=== PATIENT | female | born 1980 | race Caucasian/White ===

== ENCOUNTER 2023-05-07 21:07 | Emergency (ER) | payer MEDICAID, SELFPAY ==
--- NOTE | 2023-05-07 21:17 | XRR_ITS ---
PROCEDURE INFORMATION: Exam: XR Left Hip Exam date and time: 05/07/2023 9:23 PM Age: 43 years old Clinical indication: Injury or trauma; Fall; Blunt trauma (contusions or hematomas); Left; Hip TECHNIQUE: Imaging protocol: Radiologic exam of the left hip. Views: 2 or 3 views hip with pelvis when performed. COMPARISON: No relevant prior studies available. FINDINGS: Bones/joints: Osseous bumps are seen bilaterally in the femoral head neck junction suggesting possible cam type MARIA GUADALUPE. No acute fracture. Soft tissues: Unremarkable. XR/XR hip LT 2-3V wo/w pel* [id number] IMPRESSION: No acute findings.
[2023-05-07 21:28] VITALS: BP 134/73; PULSE 93; RESP 18; TEMP 36.8; O2SAT 97; BMI 29.0
--- NOTE | 2023-05-07 22:43 | W.ED.EXTPRO ---
HPI - Extremity Problem General: Chief complaint: Extremity Injury, Lower Stated complaint: left hip pain Time Seen by Provider: 05/07/23 22:39 History of Present Illness: 43-year-old female reports about 2 months ago she had fallen and landed on her left hip. Since then she has had persistent pain and discomfort to the left hip on the lateral aspect. Patient reports exacerbation of pain with movement of the hip. Patient appears nontoxic. Patient appears in mild pain at rest. Review of Systems Musc: Reports: joint pain (Left lateral hip) [facility] PFSH: Family History (Updated 08/31/21 @ 10:01 by Katrina Snow LPN) Mother Hypertension Diabetes type 2 Family/Other Hypertension Maternal aunt Heart disease Maternal aunt Ovarian cancer Maternal aunt Grandfather Heart disease Paternal Stroke Paternal Grandmother Breast cancer Maternal Physical Exam Const: COMMON NORMALS: alert HENMT: COMMON NORMALS: normocephalic HEAD & SCALP: normocephalic Neck/C-Spine: COMMON NORMALS: full ROM Resp: COMMON NORMALS: normal respiratory effort Back/Pelvis: COMMON NORMALS: thoracic and lumbar spine normal to inspection Extremity: LEFT LOWER EXTREMITY: Yes hip joint (Lateral tenderness, normal range of motion) Neuro: SENSORIUM/ORIENTATION: Yes alert Skin: COMMON NORMALS: turgor normal GENERAL SKIN EXAM: turgor normal Course Vital Signs: Vital signs: Vital Signs Temperature 98.3 F 05/07/23 21:28 Pulse Rate 93 05/07/23 21:28 Respiratory Rate 18 05/07/23 21:28 Blood Pressure 134/73 05/07/23 21:28 Pulse Oximetry 97 05/07/23 21:28 Oxygen Delivery Me thod Room Air 05/07/23 21:28 MDM - Extremity (Nontraumatic) Medical Decision Making 43-year-old female comes in today with complaints of left lateral hip pain. Patient injured the hip a little over 2 months ago and felt like she should be getting better she has recently acquired a new job and is going to be starting work in 1 week and was concerned due to her hip persisting with the pain and discomfort. On exam patient has some tenderness to the lateral aspect of the hip but no tenderness is noted in the inguinal area. No palpable pain is noted in the lumbar spine or in the sacroiliac joint. Differential diagnosis includes bursitis, tendinitis, arthritis, pelvic fracture. X-ray of the hip and pelvis was unremarkable. Believe the patient might have some tendinitis we will go ahead and start her on some steroids for the next 5 days to see if it resolved pain along with some diclofenac. Patient requested follow-up with orthopedics office for further evaluation and treatment due to the chronicity of the injury. Lab Data Radiology Impressions Hip/Pelvis X-Ray 05/07/23 21:17 IMPRESSION: No acute findings. Discharge Plan Discharge Patient Disposition: Home Clinical Impression: Hip pain, left, Tendinitis of left hip Condition: Stable Prescriptions: New prednisone 20 mg tablet 20 mg PO BID 5 Days Qty: 10 0RF diclofenac sodium 75 mg tablet,delayed release (DR/EC) 75 mg PO BID Qty: 20 0RF Discharge Orders: Discharge ED (Routine); Ordered 05/07/23 Ordered By: Flako Crocker Referrals: Nate Sierra MD [Primary Care Provider] - Discharge Diet: Usual diet Discharge Activity: Increase activity as tolerated Patient Instructions: Musculoskeletal Pain (ED) Activity Restrictions/Additional Instructions: Activity as tolerated. Use ice or heat to help with pain. Use acetaminophen and/or diclofenac for further pain relief. Take diclofenac routinely twice a day for the next 10 days. Use prednisone 20 mg twice a day for the next 5 days. Follow-up with primary care as needed. Case management will contact you regarding follow-up appointment with equipment sales specialist for continued pain. Coding Level of Care Code ED [employer] for Allison Shelley
[2023-05-07] MEDS: dexamethasone 10 mg/mL INJ IM (23:38)
[2023-05-07] MEDS: ketorolac 60 mg/2 mL INJ IM (23:41)
--- NOTE | 2023-05-09 09:27 | DCPLANNER ---
Addendum entered by Zoë Baumann 05/15/23 12:44: manager hardware received the following message from the ortho clinic regarding follow up appointment: Spoke to patient, she said that she talked to the ER provider and what was discussed was that she would take the medications and see how well they worked and follow up with her primary care. I let her know that's completely fine and she can call our office after she talks with her PCP if they decided she should follow up w/ orthopedics Original Note: manager hardware had message to schedule a follow up appointment for patient with ortho. manager hardware sent patients information to the front office staff at ortho. Patients information will be printed and reviewed. Clinic will call patient with appointment information.
== END 2023-05-07 23:45 | disposition home or self-care (01) ==
PROVIDERS: Emergency Provider Nurse Practitioner Family; Family Provider Family Medicine; PCP Family Medicine
DX: M76.9 Unspecified enthesopathy, lower limb, excluding foot (principal)
CPT/HCPCS: 73502; 96372; 99284; J1100; J1885

== ENCOUNTER 2024-08-12 05:00 | Emergency (ER) | payer MEDICAID, SELFPAY ==
[2024-08-12] VITALS (11 sets, daily range): BP systolic 115–134; BP diastolic 69–99; PULSE 60–89; RESP 14–18; TEMP 36.6; O2SAT 95–100; BMI 29.7
--- NOTE | 2024-08-12 05:05 | ECG_ITS ---
[facility]: 2024-[facility]12 Pat Name: Amanda Hidalgo Department: Room: Gender: Female Agricultural Produce Sorter: : 1980 Requested By: Josee Madrigal Order Number: [id number] Dejesus MD: Rhona Fan M.D. Measurements Intervals [place] Rate: 83 P: 76 [place]: 137 QRS: 89 QRSD: 80 T: 78 QT: 363 QTc: 427 Interpretive Statements SINUS RHYTHM No previous ECG available for comparison Electronically Signed On 08-12-2024 18:55:15 CEMENT AND CONCRETE PLANT WORKER by Rhona Fan M.D. [email or web address]
--- NOTE | 2024-08-12 05:05 | XRR_ITS ---
PROCEDURE INFORMATION: Exam: XR Chest Exam date and time: 08/12/2024 5:23 AM Age: 44 years old Clinical indication: Shortness of breath; Additional info: Chest pain TECHNIQUE: Imaging protocol: Radiologic exam of the chest. Views: 1 view. COMPARISON: No relevant prior studies available. FINDINGS: Lungs: Unremarkable. No consolidation. Pleural spaces: Unremarkable. No pleural effusion. No pneumothorax. Heart/Mediastinum: Unremarkable. No cardiomegaly. Bones/joints: Unremarkable. XR/XR chest 1V portable [id number] IMPRESSION: No acute findings.
--- NOTE | 2024-08-12 05:17 | W.ED.CHESTPA ---
Documented by User: Josee Elizalde MD 08/12/24 05:18 HPI - Chest Pain General: Chief Complaint: Chest Pain Stated Complaint: CP SOB High BP Time Seen by Provider: 08/12/24 05:05 History of Present Illness: 44-year-old female with no known medical history and takes no medications who presents the emergency room with chest discomfort. She said this started at the beginning of her shift tonight. About 11 hours ago. She had tried some antacid which did not help. She said she has been having some heartburn. She is also been having chest pain in the center of her chest that was hurting into her left shoulder as well. Her charge nurse checked her blood pressure and it was elevated at the time. On presentation here her vitals are fairly normal. She has had no cough. No nausea or vomiting. No diaphoresis. Related Data Home Medications Medication Instructions Recorded Confirmed No Known Home Medications 08/12/24 08/12/24 Allergies Allergy/AdvReac Type Severity Reaction Status Date / Time chlorpheniramine Allergy Mild hives Verified 08/12/24 05:07 [From [facility]] codeine [From [facility]] Allergy Mild hives Verified 08/12/24 05:07 dihydrocodeine Allergy Mild hives Verified 08/12/24 05:07 [From [facility]] phenylephrine Allergy Mild hives Verified 08/12/24 05:07 [From [facility]] pseudoephedrine Allergy Mild hives Verified 08/12/24 05:07 [From [facility]] morphine Allergy Unknown Verified 08/12/24 05:07 Review of Systems Narrative: Constitutional symptoms: Negative except as documented in HPI. Skin symptoms: Negative except as documented in HPI. Eye symptoms: Negative except as documented in HPI. ENMT symptoms: Negative except as documented in HPI. Respiratory symptoms: Negative except as documented in HPI. Cardiovascular symptoms: Negative except as documented in HPI. Gastrointestinal symptoms: Negative except as documented in HPI. Genitourinary symptoms: Negative except as documented in HPI. Musculoskeletal symptoms: Negative except as documented in HPI. Neurologic symptoms: Negative except as documented in HPI. Psychiatric symptoms: Negative except as documented in HPI. Endocrine symptoms: Negative except as documented in HPI. PFS ED PFSH: Family History (Updated 08/31/21 @ 10:01 by Katrina Edy, CHIEF OF PARTY) Mother Hypertension Diabetes type 2 Family/Other Hypertension Maternal aunt Heart disease Maternal aunt Ovarian cancer Maternal aunt Grandfather Heart disease Paternal Stroke Paternal Grandmother Breast cancer Maternal Female Reproductive History: Date of last menstrual period: 08/11/24 Physical Exam Narrative: EXAM NARRATIVE: General: Alert, no acute distress. Skin: Warm, dry. Head: Normocephalic, atraumatic. Neck: Supple, trachea midline. Eye: Extraocular movements are intact. Ears, nose, mouth and throat: mucosa moist. Cardiovascular: Regular, Normal peripheral perfusion. Respiratory: Lungs are clear to auscultation, respirations are non-labored, breath sounds are equal, Symmetrical chest wall expansion. Gastrointestinal: Soft, Nontender, Non distended Musculoskeletal: Normal ROM, no deformity. Neurological: Alert and oriented, No focal neurological deficit observed. Psychiatric: Cooperative, appropriate mood & affect. Course Vital Signs: Vital signs: Vital Signs Temperature 97.9 F 08/12/24 05:03 Pulse Rate 64 08/12/24 06:45 Respiratory Rate 15 08/12/24 06:45 Blood Pressure 129/80 08/12/24 06:45 Pulse Oximetry 99 08/12/24 06:45 Oxygen Delivery Me thod Room Air 08/12/24 06:45 MDM - Chest Pain Medical Decision Making Differential diagnosis for patient with chest pain includes but is not limited to and based on the above HPI, review of systems and physical exam: Pneumonia. unstable angina. angina. Acute coronary syndrome / [place]. Pulmonary embolism. Costochondritis / musculoskeletal. Pleurisy. Pericarditis. Esophageal spasm. Pancreatis. Cholecystitis. Orders placed to evaluate differential diagnosis based on the above differential, HPI and physical exam EKG: Time 5:05 AM. Rate 83 normal sinus rhythm, No ST-T changes, no ectopy, normal OH & QRS intervals, This was reviewed and interpreted by myself the ER physician at 5:10 AM Patient care transitioned to Dr. Cleary at shift change Lab Data 08/12/24 05:17 08/12/24 05:17 Radiology Impressions Chest X-Ray 08/12/24 05:05 IMPRESSION: No acute findings. Laboratory Results WBC 6.91 10^3/uL (3.29-11.43) 08/12/24 05:17 RBC 3.67 10^6/uL (3.85-5.65) L 08/12/24 05:17 Hgb 12.20 g/dL (11.27-16.99) 08/12/24 05:17 Hct 36.4 % (36-47) 08/12/24 05:17 MCV 99.2 fl (85-98) H 08/12/24 05:17 MCH 33.2 pg (27-33) H 08/12/24 05:17 MCHC 33.5 g/dL (30-55) 08/12/24 05:17 RDW 12.3 % (12.1-15.1) 08/12/24 05:17 Plt Count 291 10^3/cmm (157-399) 08/12/24 05:17 MPV 9.5 fL (7.4-10.4) 08/12/24 05:17 Neut % (Auto) 45.6 % 08/12/24 05:17 Lymph % (Auto) 42.4 % 08/12/24 05:17 [place] % (Auto) 6.2 % 08/12/24 05:17 Eos % (Auto) 4.9 % 08/12/24 05:17 Baso % (Auto) 0.6 % 08/12/24 05:17 Neut # (Auto) 3.15 10^3/uL (1.8-7.7) 08/12/24 05:17 Lymph # (Auto) 2.9 10^3/uL (0.8-4.8) 08/12/24 05:17 [place] # (Auto) 0.4 10^3/uL (0.2-0.9) 08/12/24 05:17 Eos # (Auto) 0.3 10^3/uL (0.0-0.8) 08/12/24 05:17 Baso # (Auto) 0.0 10^3/uL (0.0-0.1) 08/12/24 05:17 Nucleated RBC % (auto) 0 % 08/12/24 05:17 Nucleated RBCs # 0.0 /100WBC 08/12/24 05:17 Sodium 138 mmol/L (136-145) 08/12/24 05:17 Potassium 3.2 mmol/L (3.5-5.1) L 08/12/24 05:17 Chloride 101 mmol/L (98-107) 08/12/24 05:17 Carbon Dioxide 24 mmol/L (22-29) 08/12/24 05:17 Anion Gap 16.2 (5-19) 08/12/24 05:17 BUN 11 mg/dL (6-20) 08/12/24 05:17 Creatinine 0.5 mg/dL (0.5-0.9) 08/12/24 05:17 GFR Calculation 133.4 mL/min (90-130) H 08/12/24 05:17 Glucose 97 mg/dL (65-115) 08/12/24 05:17 Calculated Osmolality 285 mOsm/kg (285-295) 08/12/24 05:17 Calcium 8.6 mg/dL (8.5-10.5) 08/12/24 05:17 Total Bilirubin 0.5 mg/dL (0.15-1.2) 08/12/24 05:17 AST 22 U/L (0-32) 08/12/24 05:17 ALT 19 U/L (0-33) 08/12/24 05:17 Alkaline Phosphatase 87 U/L (35-105) 08/12/24 05:17 Troponin T Baseline < 6 ng/L (0-10) 08/12/24 05:17 Troponin T 120 Minute 6.00 ng/L (0-10) 08/12/24 07:05 Delta Troponin T 0.83441 ABS# (0-10) 08/12/24 07:05 Total Protein 6.7 g/dL (6.6-8.7) 08/12/24 05:17 Albumin 4.2 g/dL (3.5-5.2) 08/12/24 05:17 Globulin 2.5 g/dL (1.3-4.6) 08/12/24 05:17 Discharge Plan Discharge Patient Disposition: Home Clinical Impression: Chest pain Condition: Stable Prescriptions: No Action No Known Home Medications Discharge Orders: Discharge ED (Routine); Ordered 08/12/24 Ordered By: Fredo Cleary Referrals: Nate Sierra MD [Primary Care Provider] - 4-7 days Discharge Diet: Advance as tolerated Discharge Activity: Resume usual activity Patient Instructions: Chest Pain (ED) Coding Level of Care Code ED Mechanical Engineering Draftsperson for Chg Fwd Documented by User: Fredo Cleary MD 08/12/24 07:33 HPI - Chest Pain General: Chief Complaint: Chest Pain Stated Complaint: CP SOB High BP Time Seen by Provider: 08/12/24 05:05 Related Data Home Medications Medication Instructions Recorded Confirmed No Known Home Medications 08/12/24 08/12/24 Allergies Allergy/AdvReac Type Severity Reaction Status Date / Time chlorpheniramine Allergy Mild hives Verified 08/12/24 05:07 [From [facility]] codeine [From [facility]] Allergy Mild hives Verified 08/12/24 05:07 dihydrocodeine Allergy Mild hives Verified 08/12/24 05:07 [From [facility]] phenylephrine Allergy Mild hives Verified 08/12/24 05:07 [From [facility]] pseudoephedrine Allergy Mild hives Verified 08/12/24 05:07 [From [facility]] morphine Allergy Unknown Verified 08/12/24 05:07 PFS ED PFSH: Family History (Updated 08/31/21 @ 10:01 by Katrina Snow LPN) Mother Hypertension Diabetes type 2 Family/Other Hypertension Maternal aunt Heart disease Maternal aunt Ovarian cancer Maternal aunt Grandfather Heart disease Paternal Stroke Paternal Grandmother Breast cancer Maternal Course Vital Signs: Vital signs: Vital Signs Temperature 97.9 F 08/12/24 05:03 Pulse Rate 64 08/12/24 06:45 Respiratory Rate 15 08/12/24 06:45 Blood Pressure 129/80 08/12/24 06:45 Pulse Oximetry 99 08/12/24 06:45 Oxygen Delivery Me thod Room Air 08/12/24 06:45 MDM - Chest Pain Medical Decision Making Differential diagnosis for patient with chest pain includes but is not limited to and based on the above HPI, review of systems and physical exam: Pneumonia. unstable angina. angina. Acute coronary syndrome / [place]. Pulmonary embolism. Costochondritis / musculoskeletal. Pleurisy. Pericarditis. Esophageal spasm. Pancreatis. Cholecystitis. Orders placed to evaluate differential diagnosis based on the above differential, HPI and physical exam EKG: Time 5:05 AM. Rate 83 normal sinus rhythm, No ST-T changes, no ectopy, normal [place] & QRS intervals, This was reviewed and interpreted by myself the ER physician at 5:10 AM Patient care transitioned to Dr. Cleary at shift change Patient presents here chest pains atypical in nature troponins D-dimer here are negative she is stable for discharge follow-up PCP return if worsening. Medical Records I reviewed the patient's medical records. Lab Data I reviewed the patient's lab results. 08/12/24 05:17 08/12/24 05:17 Radiology Impressions Chest X-Ray 08/12/24 05:05 IMPRESSION: No acute findings. Laboratory Results WBC 6.91 10^3/uL (3.29-11.43) 08/12/24 05:17 RBC 3.67 10^6/uL (3.85-5.65) L 08/12/24 05:17 Hgb 12.20 g/dL (11.27-16.99) 08/12/24 05:17 Hct 36.4 % (36-47) 08/12/24 05:17 MCV 99.2 fl (85-98) H 08/12/24 05:17 MCH 33.2 pg (27-33) H 08/12/24 05:17 MCHC 33.5 g/dL (30-55) 08/12/24 05:17 RDW 12.3 % (12.1-15.1) 08/12/24 05:17 Plt Count 291 10^3/cmm (157-399) 08/12/24 05:17 MPV 9.5 fL (7.4-10.4) 08/12/24 05:17 Neut % (Auto) 45.6 % 08/12/24 05:17 Lymph % (Auto) 42.4 % 08/12/24 05:17 [place] % (Auto) 6.2 % 08/12/24 05:17 Eos % (Auto) 4.9 % 08/12/24 05:17 Baso % (Auto) 0.6 % 08/12/24 05:17 Neut # (Auto) 3.15 10^3/uL (1.8-7.7) 08/12/24 05:17 Lymph # (Auto) 2.9 10^3/uL (0.8-4.8) 08/12/24 05:17 [place] # (Auto) 0.4 10^3/uL (0.2-0.9) 08/12/24 05:17 Eos # (Auto) 0.3 10^3/uL (0.0-0.8) 08/12/24 05:17 Baso # (Auto) 0.0 10^3/uL (0.0-0.1) 08/12/24 05:17 Nucleated RBC % (auto) 0 % 08/12/24 05:17 Nucleated RBCs # 0.0 /100WBC 08/12/24 05:17 Sodium 138 mmol/L (136-145) 08/12/24 05:17 Potassium 3.2 mmol/L (3.5-5.1) L 08/12/24 05:17 Chloride 101 mmol/L (98-107) 08/12/24 05:17 Carbon Dioxide 24 mmol/L (22-29) 08/12/24 05:17 Anion Gap 16.2 (5-19) 08/12/24 05:17 BUN 11 mg/dL (6-20) 08/12/24 05:17 Creatinine 0.5 mg/dL (0.5-0.9) 08/12/24 05:17 GFR Calculation 133.4 mL/min (90-130) H 08/12/24 05:17 Glucose 97 mg/dL (65-115) 08/12/24 05:17 Calculated Osmolality 285 mOsm/kg (285-295) 08/12/24 05:17 Calcium 8.6 mg/dL (8.5-10.5) 08/12/24 05:17 Total Bilirubin 0.5 mg/dL (0.15-1.2) 08/12/24 05:17 AST 22 U/L (0-32) 08/12/24 05:17 ALT 19 U/L (0-33) 08/12/24 05:17 Alkaline Phosphatase 87 U/L (35-105) 08/12/24 05:17 Troponin T Baseline < 6 ng/L (0-10) 08/12/24 05:17 Troponin T 120 Minute 6.00 ng/L (0-10) 08/12/24 07:05 Delta Troponin T 0.26456 ABS# (0-10) 08/12/24 07:05 Total Protein 6.7 g/dL (6.6-8.7) 08/12/24 05:17 Albumin 4.2 g/dL (3.5-5.2) 08/12/24 05:17 Globulin 2.5 g/dL (1.3-4.6) 08/12/24 05:17 All radiology interpretation(s) finalized by discharge Discharge Plan Discharge Patient Disposition: Home Clinical Impression: Chest pain Condition: Stable Prescriptions: No Action No Known Home Medications Discharge Orders: Discharge ED (Routine); Ordered 08/12/24 Ordered By: Fredo Cleary Referrals: Nate Sierra MD [Primary Care Provider] - 4-7 days Discharge Diet: Advance as tolerated Discharge Activity: Resume usual activity Patient Instructions: Chest Pain (ED) Coding Level of Care Code ED Mechanical Engineering Draftsperson for Allison Shelley
[2024-08-12 05:22] LABS: Basophils % 0.6 %; Eosinophils # 0.3 10^3/uL (0.0-0.8); Eosinophils % 4.9 %; Hematocrit 36.4 % (36-47); Lymphocytes # 2.9 10^3/uL (0.8-4.8); Lymphocytes % 42.4 %; Mean Corpuscular HGB Conc 33.5 g/dL (30-55); Mean Corpuscular Hemoglobin 33.2 pg (27-33); Mean Corpuscular Volume 99.2 fl (85-98); Mean Platelet Volume 9.5 fL (7.4-10.4); Monocytes # 0.4 10^3/uL (0.2-0.9); Monocytes % 6.2 %; Neutrophils # 3.15 10^3/uL (1.8-7.7); Neutrophils % 45.6 %; Nucleated Red Blood Cells % 0 %; Platelet Count 291 10^3/cmm (157-399); Red Blood Count 3.67 10^6/uL (3.85-5.65); Red Cell Distribution Width 12.3 % (12.1-15.1); White Blood Count 6.91 10^3/uL (3.29-11.43)
[2024-08-12 05:40] LABS: Troponin(5th) Baseline < 6 ng/L (0-10)
[2024-08-12 05:41] LABS: Alanine Aminotransferase 19 U/L (0-33); Albumin Level 4.2 g/dL (3.5-5.2); Alkaline Phosphatase 87 U/L (35-105); Anion Gap 16.2 (5-19); Aspartate Amino Transferase 22 U/L (0-32); Blood Urea Nitrogen 11 mg/dL (6-20); Calcium 8.6 mg/dL (8.5-10.5); Carbon Dioxide 24 mmol/L (22-29); Chloride 101 mmol/L (98-107); Globulin 2.5 g/dL (1.3-4.6); Glomerular Filtration Rate 133.4 mL/min (90-130); Glucose 97 mg/dL (65-115); Osmolality Calculated 285 mOsm/kg (285-295); Potassium 3.2 mmol/L (3.5-5.1); Sodium 138 mmol/L (136-145); Total Bilirubin 0.5 mg/dL (0.15-1.2); Total Protein 6.7 g/dL (6.6-8.7)
--- NOTE | 2024-08-12 07:14 | ECG_ITS ---
[facility]: 2024[facility]12 Pat Name: Amanda Hidalgo Department: Room: Gender: Female Utilization Manager: : 1980 Requested By: Josee Madrigal Order Number: [id number] Dejesus MD: Rhona Fan M.D. Measurements Intervals [place] Rate: 61 P: 66 MO: 124 QRS: 88 QRSD: 83 T: 80 QT: 427 QTc: 431 Interpretive Statements SINUS RHYTHM Compared to ECG 08/12/2024 05:05:22 No significant changes Electronically Signed On 08-12-2024 19:19:02 ALUMINUM SHEET CUTTER by Rhona Fan M.D. [email or web address]
[2024-08-12 07:26] LABS: Troponin 5 2HR Delta 0.00001 ABS# (0-10)
== END 2024-08-12 07:43 | disposition home or self-care (01) ==
PROVIDERS: Emergency Medicine; Emergency Provider Emergency Medicine; PCP Family Medicine
DX: R07.9 Chest pain, unspecified (principal)
CPT/HCPCS: 36415; 71045; 80053; 84484; 85025; 93005; 99285

== ENCOUNTER 2024-08-26 00:06 | Emergency (ER) | payer MEDICAID, SELFPAY ==
[2024-08-26 00:21] VITALS: BP 114/74; PULSE 87; RESP 16; TEMP 36.8; O2SAT 99
--- NOTE | 2024-08-26 00:27 | XRR_ITS ---
PROCEDURE INFORMATION: Exam: XR Right Hand Exam date and time: 08/26/2024 1:11 AM Age: 44 years old Clinical indication: Pain; Hand; Right; Additional info: Right hand pain after punching something TECHNIQUE: Imaging protocol: Radiologic exam of the right hand. Views: 3 or more views. COMPARISON: No relevant prior studies available. FINDINGS: Bones/joints: Normal. Soft tissues: Normal. XR/XR hand RT min 3V* [id number] IMPRESSION: No acute findings.
--- NOTE | 2024-08-26 02:21 | W.ED.EXTPRO ---
HPI - Extremity Problem General: Chief complaint: Extremity Injury, Upper Stated complaint: Rt Hand Injury Time Seen by Provider: 08/26/24 02:21 History of Present Illness: Patient presents to the ER with complaints of bruising swelling and pain to the right forehead and in the ring finger area. Patient said that she punched something a couple days ago and has been bruised swollen and hurting ever since. Related Data Home Medications Medication Instructions Recorded Confirmed No Known Home Medications 08/12/24 08/12/24 Allergies Allergy/AdvReac Type Severity Reaction Status Date / Time chlorpheniramine Allergy Mild hives Verified 08/26/24 00:26 [From [facility]] codeine [From [facility]] Allergy Mild hives Verified 08/26/24 00:26 dihydrocodeine Allergy Mild hives Verified 08/26/24 00:26 [From [facility]] phenylephrine Allergy Mild hives Verified 08/26/24 00:26 [From [facility]] pseudoephedrine Allergy Mild hives Verified 08/26/24 00:26 [From [facility]] avocado Allergy Unknown Verified 08/26/24 00:26 morphine Allergy Unknown Verified 08/26/24 00:26 Review of Systems General: Reports: 10 or more systems reviewed and unremarkable except in HPI and below PFSH ED PFSH: Family History Mother Hypertension Diabetes type 2 Family/Other Hypertension Maternal aunt Heart disease Maternal aunt Ovarian cancer Maternal aunt Grandfather Heart disease Paternal Stroke Paternal Grandmother Breast cancer Maternal Physical Exam Const: COMMON NORMALS: no acute distress, average body habitus, patient oriented x3, no limitations, healthy appearing, alert and well nourished HENMT: COMMON NORMALS: normocephalic, atraumatic, hearing grossly normal bilaterally, external ears normal, Normal external nose present and moist oral mucous membranes HEAD & SCALP: normocephalic and atraumatic NOSE: Normal external nose present EXTERNAL EAR: Yes external ears normal Neck/C-Spine: COMMON NORMALS: no JVD Chest: COMMONS NORMALS: normal inspection of the chest and normal palpation of entire chest wall Resp: COMMON NORMALS: normal respiratory effort, No retractions, No use of accessory muscles and clear to auscultation bilaterally AUSCULTATION: clear to auscultation bilaterally Cardio: COMMON NORMALS: no JVD, regular rate, regular rhythm, S1 normal heart sound present, S2 normal heart sound present, No gallops present (Cardio), No clicks present (Cardio), No murmurs present (Cardio) and No rub (Cardio) RATE: regular rate RHYTHM: regular rhythm HEART SOUNDS: S1 normal heart sound present and S2 normal heart sound present GI: COMMON NORMALS: Normal to inspection, nondistended, normoactive bowel sounds present, Soft to palpation, non-tender, No hepatosplenomegaly present and no masses PALPATION: Yes Soft to palpation and Yes No hepatosplenomegaly present Extremity: NARRATIVE EXTREMITY EXAM: Positive ecchymosis swelling to the dorsum of the right hand. Primarily tenderness over the right carpal metacarpal area of the fourth digit. No obvious crepitus or deformity. Neuro: COMMON NORMALS: patient oriented x3 SENSORIUM/ORIENTATION: Yes alert Course Vital Signs: Vital signs: Vital Signs Temperature 98.2 F 08/26/24 00:21 Pulse Rate 87 08/26/24 00:21 Respiratory Rate 16 08/26/24 00:21 Blood Pressure 114/74 08/26/24 00:21 Pulse Oximetry 99 08/26/24 00:21 Oxygen Delivery Me thod Room Air 08/26/24 00:21 MDM - Extremity (Nontraumatic) Medical Decision Making X-ray of the right hand is obtained read by me preliminary read as negative. His results were discussed with the patient. Patient be discharged home. Medical Records I reviewed the patient's medical records. Lab Data I reviewed the patient's lab results. XR interpretation done by ED provider, pending radiology final review Discharge Plan Discharge Patient Disposition: Home Clinical Impression: Contusion of dorsum of right hand Condition: Stable Prescriptions: No Action No Known Home Medications Discharge Orders: Discharge ED (Routine); Ordered 08/26/24 Ordered By: Lan Linares Referrals: Nate Sierra MD [Primary Care Provider] - 1 week Patient Instructions: Contusion Activity Restrictions/Additional Instructions: The x-ray of her head is preliminary read by myself is negative for fracture. When radiologist reads it if he sees anything other than that we will give you call especially if it changes treatment plan. Otherwise we will give you tonight and tomorrow off work. Please follow-up with your family practitioner in the next 7 days as needed for further evaluation treatment. Stand Alone Forms: Work/School Release Coding Level of Care Code ED Educational Aid for Allison Shelley
[2024-08-26 02:35] VITALS: BP 121/61; PULSE 87; O2SAT 99
== END 2024-08-26 02:36 | disposition home or self-care (01) ==
PROVIDERS: Emergency Provider Emergency Medicine; PCP Family Medicine
DX: S60.221A Contusion of right hand, initial encounter (principal); W22.8XXA Striking against or struck by other objects, initial encounter
CPT/HCPCS: 73130; 99283